=== PATIENT | male | born 1960 | race Caucasian/White ===

== ENCOUNTER 2025-01-14 05:58 | Day surgery (SDC) | payer MEDICARE ==
[2025-01-13 09:47] LABS: BASOPHILS # (AUTO) 0.1 X10'3 (0-0.2); BASOPHILS % (AUTO) 1.1 % (0-1); EOSINOPHILS # (AUTO) 0.6 X10'3 (0-0.9); EOSINOPHILS % (AUTO) 9.4 % (0-6); HEMATOCRIT 49.1 % (42.0-52.0); HEMOGLOBIN 16.2 g/dl (14.0-17.9); LYMPHOCYTES # (AUTO) 1.2 X10'3 (1.1-4.8); LYMPHOCYTES % (AUTO) 17.8 % (21-51); MEAN CORPUSCULAR VOLUME 87.8 FL (78-98); MEAN PLATELET VOLUME 9.5 FL (7.4-10.4); MONOCYTES # (AUTO) 0.6 X10'3 (0-0.9); MONOCYTES % (AUTO) 9.5 % (2-12); NEUTROPHILS # (AUTO) 4.1 X10'3 (1.8-7.7); NEUTROPHILS % (AUTO) 62.2 % (42-75); PLATELET COUNT 158 X10'3 (140-440); RED CELL DISTRIBUTION WIDTH 14.8 % (11.5-14.5); WHITE BLOOD COUNT 6.5 X10'3 (4.5-11.0)
[2025-01-13 09:58] LABS: ALBUMIN 3.8 G/DL (3.4-5.0); ANION GAP 6 (8-16); BLOOD UREA NITROGEN 12 MG/DL (7-18); BUN/CREATININE RATIO 12.2 (10.0-20.0); CALCIUM 8.6 MG/DL (8.5-10.1); CHLORIDE 104 MMOL/L (99-107); CREATININE 0.98 MG/DL (0.60-1.10); GLUCOSE 140 MG/DL (70-104); POTASSIUM 4.6 MMOL/L (3.5-5.1); SODIUM 139 MMOL/L (135-145); TOTAL CARBON DIOXIDE 29.5 MMOL/L (24-32); eGFR 77 ML/MIN
[2025-01-13 10:11] LABS: APTT 27 SECONDS (22-32); PROTHROMBIN TIME 10.3 SECONDS (9.0-12.0)
[~2025-01-14] VITALS: Ht 167.6 cm; Wt 83.0 kg
[2025-01-14] VITALS (13 sets, daily range): BP systolic 129–159; BP diastolic 68–88; PULSE 64–82; RESP 12–16; TEMP 98.2; O2SAT 95–99
[~2025-01-14 05:58] MED LIST: BUPR300T53 PO; CARV25TA2 PO; GABA-1405 PO; LISI20TA28 PO; OMEP20CA15 PO; TEST200V33 IM
[2025-01-14] MEDS ORDERED: HYDR-3973 PO (06:46)
[2025-01-14] MEDS ORDERED: OMEP20CA16 PO (06:46)
[2025-01-14] MEDS ORDERED: METF750T46 PO (06:46)
[2025-01-14] MEDS ORDERED: ROSU20TA98 PO (06:46)
[2025-01-14] MEDS ORDERED: APIX5TAB3 PO (06:46)
[2025-01-14] MEDS ORDERED: TERA2CAP4 PO (06:48)
[2025-01-14] MEDS ORDERED: IBUP-1985 PO (06:53)
[2025-01-14] MEDS ORDERED: ASPI-612 PO (06:53)
[2025-01-14] MEDS ORDERED: VITAMIN D (06:53)
[2025-01-14] MEDS ORDERED: VARD20TA39 PO (06:53)
[2025-01-14] MEDS ORDERED: AMLO-507 PO ×2 (06:56→11:47)
[2025-01-14] MEDS: LORazepam 0.5 MG tablet PO PRN (07:07)
[2025-01-14] MEDS: diphenhydrAMINE 25mg capsule PO PRN (07:07)
[2025-01-14] MEDS: normal saline 1,000 ML IV SCH (07:08)
[2025-01-14] MEDS ORDERED: fentaNYL/PF 50MCG/1 ML 2ML syringe ONE (07:46)
[2025-01-14] MEDS ORDERED: LIDOcaine 1% (10mg/ml) 2ml vial ONE (07:46)
[2025-01-14] MEDS ORDERED: midazolam 1 mg/ML 2ml injection ONE (07:46)
[2025-01-14] MEDS ORDERED: verapamil 2.5 mg/ml inj IV ONE (07:46)
[2025-01-14] MEDS ORDERED: iohexol 350 MG/ML 50ML vial IV ONE ×2 (07:46→10:12)
[2025-01-14] MEDS ORDERED: heparin 1,000unit/ml 10ml vial 10 ML ONE (07:47)
[2025-01-14] MEDS ORDERED: iohexol 350MG/ML 100ml bottle IV ONE ×3 (07:47→09:40)
[2025-01-14] MEDS ORDERED: nitroGLYCERIN 500mcg/5mL D5W 5 ML IV ONE ×3 (07:48→10:11)
[2025-01-14] MEDS ORDERED: heparin 1,000 UNITS/NS 500ml 500 ML ONE (09:27)
[2025-01-14] MEDS ORDERED: heparin 25,000 UNIT/250ml bag 250 ML IV ONE (09:34)
[2025-01-14] MEDS ORDERED: clopidogrel 300mg tablet ONE (10:16)
[2025-01-14 11:38] LABS: ISTAT HGB MIX 15.6 g/dl (14.0-17.9); ISTAT Hct MIX 46 %PCV (42-52); ISTAT O2 SATURATION MIX VENOUS 61 % (60-80); ISTAT SOURCE BLNK
[2025-01-14] MEDS ORDERED: normal saline 1000ml 1,000 ML IV SCH (11:45)
[2025-01-14] MEDS ORDERED: PANT-47 PO (11:47)
[2025-01-14] MEDS ORDERED: CLOP75TA33 PO (11:47)
[2025-01-14] MEDS ORDERED: ASPI-1071 PO (11:47)
[2025-01-14] MEDS ORDERED: ROSU40TA PO (11:47)
[2025-01-14 14:04] LABS: ISTAT HGB MIX 15.6 g/dl (14.0-17.9); ISTAT Hct MIX 46 %PCV (42-52); ISTAT O2 SATURATION MIX VENOUS 87 % (60-80); ISTAT SOURCE BLNK
[2025-01-15] MEDS ORDERED: aspirin 81mg, enteric-coated 1 TAB TABLET.DR PO SCH (08:00)
[2025-01-15] MEDS ORDERED: clopidogrel 75mg tablet PO SCH (08:00)
== END 2025-01-14 17:45 | disposition home or self-care (01) ==
LOC: SSTAY O 05:58
PROVIDERS: ATTEND Internal Medicine Cardiovascular Disease
DX: R94.39 Abnormal result of other cardiovascular function study (principal); I25.10 Atherosclerotic heart disease of native coronary artery without angina pectoris; R07.89 Other chest pain; I42.0 Dilated cardiomyopathy; E78.5 Hyperlipidemia, unspecified; I25.82 Chronic total occlusion of coronary artery; I25.2 Old myocardial infarction; I10 Essential (primary) hypertension; Z82.49 Family history of ischemic heart disease and other diseases of the circulatory system; Z79.899 Other long term (current) drug therapy; Z98.890 Other specified postprocedural states; E11.42 Type 2 diabetes mellitus with diabetic polyneuropathy
CPT/HCPCS: 36415; 80048; 82803; 82948; 85014; 85025; 85347; 85610; 85730; 92920; 93005; 93460; 93571; 93572; 99152; 99153; A6258; A6402; C1725; C1751; C1769; C1874; C1894; C9600; J1644; J2003; J2250; J3010; J3490; J7030; Q0163; Q9967; Z7610; 76937; C9607

== ENCOUNTER 2025-04-01 00:33 | Emergency (ER) | payer MEDICARE ==
[~2025-04-01] VITALS: Ht 167.6 cm; Wt 81.8 kg
[~2025-04-01 00:33] MED LIST changes: +APIX5TAB3 PO; +ASPI-1071 PO; +CARV12.545 PO; -CARV25TA2 PO; +CLOP75TA33 PO; +EMPA10TA PO; +HYDR-3973 PO; -LISI20TA28 PO; +LISI5TAB22 PO; -OMEP20CA15 PO; +PANT-47 PO; +ROSU40TA PO; +SPIR25TA PO; +TERA2CAP4 PO; -TEST200V33 IM; +VITAMIN D
--- NOTE | 2025-04-01 00:41 | ELECTROCARDIOGRAPH REPORT ---
[facility] Test Date: 2025-04-01 Test Time: 00:36:23 Pat Name: JOSH HYMAN Department: [facility] Patient ID: [id number] Room: Gender: M Lawn Mower Operator: : 1960 Requested By: SERGO OSEI Order Number: [id number] Reading MD: Measurements Intervals [place] Rate: 100 P: 0 ID: 0 QRS: 80 QRSD: 100 T: 82 QT: 355 QTc: 458 Interpretive Statements Junctional tachycardia Anterior infarct, old Minimal ST depression, inferior leads Please click the below link to view image of tracing.
[2025-04-01 00:46] LABS: BASOPHILS # (AUTO) 0.1 X10'3 (0-0.2); BASOPHILS % (AUTO) 1.2 % (0-1); EOSINOPHILS # (AUTO) 1.1 X10'3 (0-0.9); EOSINOPHILS % (AUTO) 13.2 % (0-6); HEMATOCRIT 43.6 % (42.0-52.0); HEMOGLOBIN 14.8 g/dl (14.0-17.9); LYMPHOCYTES # (AUTO) 1.9 X10'3 (1.1-4.8); LYMPHOCYTES % (AUTO) 22.4 % (21-51); MEAN CORPUSCULAR HEMOGLOBIN 29.4 PG (27.0-31.0); MEAN CORPUSCULAR HGB CONC 33.9 g/dL (33.0-36.5); MEAN CORPUSCULAR VOLUME 86.7 FL (78-98); MEAN PLATELET VOLUME 9.5 FL (7.4-10.4); MONOCYTES # (AUTO) 0.8 X10'3 (0-0.9); MONOCYTES % (AUTO) 10.1 % (2-12); NEUTROPHILS # (AUTO) 4.4 X10'3 (1.8-7.7); NEUTROPHILS % (AUTO) 53.1 % (42-75); PLATELET COUNT 151 X10'3 (140-440); RED BLOOD COUNT 5.03 X10'6 (4.70-6.10); WHITE BLOOD COUNT 8.4 X10'3 (4.5-11.0)
[2025-04-01 01:05] LABS: ALBUMIN 3.3 G/DL (3.4-5.0); ANION GAP 7 (8-16); BLOOD UREA NITROGEN 12 MG/DL (7-18); BUN/CREATININE RATIO 8.7 (10.0-20.0); CALCIUM 8.6 MG/DL (8.5-10.1); CHLORIDE 108 MMOL/L (99-107); CREATININE 1.38 MG/DL (0.60-1.10); GLUCOSE 182 MG/DL (70-104); POTASSIUM 4.1 MMOL/L (3.5-5.1); SODIUM 144 MMOL/L (135-145); TOTAL CARBON DIOXIDE 28.7 MMOL/L (24-32); eCRCL 48 ML/MIN; eGFR 52 ML/MIN
--- NOTE | 2025-04-01 01:07 | RADIOLOGY REPORT ---
CHEST RADIOGRAPH Indication: CP Technique: Single frontal view of the chest was obtained COMPARISON: DI CHEST,SINGLE VIEW on DOS: 01/24/25 FINDINGS: Lines and Tubes: None Lungs: Clear Pleura: No effusion. No pneumothorax. Cardiomediastinal contours: Unremarkable Bones: Unremarkable IMPRESSION: 1. No acute disease.
[2025-04-01 01:25] LABS: PRO BRAIN NATRIURETIC PEPTIDE 1192 PG/ML (0-125)
--- NOTE | 2025-04-01 01:53 | Physician Documentation ---
History of Present Illness ~ Chief Complaint: Palpitations Stated Complaint: RAPID HR Time Seen by MD: 01:49 Primary Medical Doctor: Mitch Mode of Arrival: POV HPI Patient presented to the emergency room for palpitations that began a proximally 10:00 a.m. this morning. He has been having these symptoms on and off and his manufacturing finance manager had him wear a Holter monitor which she just returned to that has yet to hear the results. He denies chest pain. Patient has extensive heart h istory over the past nine months in his being referred to [facility] for possible additional stent placement. He reports compliance with his anticoagulation. He also endorses some diaphoresis and low blood pressures which has been erratic recently. Currently he feels much better. Medication Reconciliation Allergies: Coded Allergies: No Known Allergies (Unverified , 01/09/17) Scheduled Apixaban (Eliquis), 1 TAB PO BID, (Reported) Aspirin (Ecotrin*), 2 TAB PO DAILY Bupropion HCl (Wellbutrin Xl), 1 TAB PO DAILY, (Reported) Carvedilol (Carvedilol), 12.5 MG PO BID Clopidogrel Bisulfate (Clopidogrel), 1 TAB PO DAILY Empagliflozin (Jardiance), 10 MG PO DAILY Gabapentin (Gabapentin), 1 TAB PO BID, (Reported) Lisinopril (Lisinopril), 5 MG PO DAILY Pantoprazole Sodium (PROTONIX tablet), 1 TAB PO DAILY Rosuvastatin Calcium* (Crestor*), 1 TAB PO HS Spironolactone (Aldactone), 12.5 MG PO DAILY@0830 Terazosin HCl (Terazosin HCl), 1 CAP PO HS, (Reported) Scheduled PRN Hydrocodone Bit/Acetaminophen (Hydrocodone-Apap 10-325 Tablet), 1 TAB PO QID PRN for pain, (Reported) Miscellaneous Medications [Vitamin D], (Reported) Past Medical History Past Medical History: BPH, Chronic Back Pain Past Surgical History: orthopedic surgeries Patient History: Patient reports no known family medical history. Other Past Family History: NONCONTRIBUTORY Drug Use: none Lives In: Home Review of Systems ROS All review of systems negative except as per HPI Physical Exam Vital Signs: Temperature: 97.8, Source: Oral, Heart Rate: 98, Respiratory Rate: 10, BP: 112/73, Pulse Oximetry: 94, Weight: 81.820 Oxygen Flow Rate: 2.0 Physical Exam General: Patient is awake, alert, oriented x4 in no acute distress Head: Normocephalic and atraumatic. Eyes: Conjunctival normal. EOMI. PERRL. ENT: Mucous membranes moist. Neck: Supple, trachea is midline. Chest: Clear to auscultation bilaterally without rales, rhonchi, or wheezes. There is no accessory muscle use or retractions. Cardiac: RRR without murmurs, gallops, or rubs. Abd: Soft, nondistended, nontender, with normoactive bowel sounds. No guarding, rebound, or rigidity. Progress Progress Note Turned nasal cannula off and patient is saturating 99% on room air Results/Orders Results/Orders Orders - RAMOS PERAZA MD Chest,Single View (04/01/25 00:46) Monitor (04/01/25 00:36) Saline Lock (04/01/25 00:36) Oxygen (04/01/25 00:36) Hs Troponin I W Calculations (04/01/25 03:36) Completed Orders - RAMOS PERAZA MD Chest,Single View (04/01/25 00:46) Cbc/Diff (04/01/25 00:36) BMP (04/01/25 00:36) PBNP (04/01/25 00:36) Electrocardiogram (04/01/25 00:36) Hs Troponin I W Calculations (04/01/25 00:36) Hs Troponin I W Calculations (04/01/25 02:36) Vital Signs 04/01/25 04/01/25 04/01/25 04/01/25 00:37 00:41 00:45 01:15 Temp 97.8 Pulse 100 98 Resp 20 19 10 B/P (MAP) 126/73 112/73 (86) Pulse Ox 80 97 94 O2 Delivery Nasal Cannula* O2 Flow Rate 0 2.0 2 FiO2 28 04/01/25 04/01/25 04/01/25 02:07 02:50 03:18 Pulse 89 89 88 Resp 9 10 13 B/P (MAP) 101/70 (80) 107/75 (86) 100/66 (77) Pulse Ox 97 100 99 O2 Flow Rate 2.0 2.0 Laboratory Tests Test 04/01/25 00:38 04/01/25 02:31 White Blood Count 8.4 Red Blood Count 5.03 Hemoglobin 14.8 Hematocrit 43.6 Mean Corpuscular Volume 86.7 Mean Corpuscular Hemoglobin 29.4 Mean Corpuscular Hemoglobin Concent 33.9 Red Cell Distribution Width 15.0 H Platelet Count 151 Mean Platelet Volume 9.5 Neutrophils (%) (Auto) 53.1 Lymphocytes (%) (Auto) 22.4 Monocytes (%) (Auto) 10.1 Eosinophils (%) (Auto) 13.2 H Basophils (%) (Auto) 1.2 H Neutrophils # (Auto) 4.4 Lymphocytes # (Auto) 1.9 Monocytes # (Auto) 0.8 Eosinophils # (Auto) 1.1 H Basophils # (Auto) 0.1 CBC Comment Sodium Level 144 Potassium Level 4.1 Chloride Level 108 H Carbon Dioxide Level 28.7 Anion Gap 7 L Blood Urea Nitrogen 12 Creatinine 1.38 H Estimated GFR/1.73 m2 52 BUN/Creatinine Ratio 8.7 L Glucose Level 182 H Calcium Level 8.6 Troponin I High Sensitivity 109 *H 103 *H Pro-B-Type Natriuretic Peptide 1192 H Albumin 3.3 L Chemistry Comments Troponin I High Sens Percent Delta 5 Troponin I Hi Sens Absolute Change -6 EKG/XRAY/CT/US/VASC/MRI EKG : Additional Comment EKG interpreted by myself shows time of 0037, rate 100, junctional rhythm, nor mal axis, ST elevations in leads V2 through V4 unchanged compared to previous with no reciprocal changes. Chest X-Ray : Additional Comments Exam: CHEST,SINGLE VIEW CHEST RADIOGRAPH Indication: CP Technique: Single frontal view of the chest was obtained COMPARISON: DI CHEST,SINGLE VIEW on DOS: 01/24/25 FINDINGS: Lines and Tubes: None Lungs: Clear Pleura: No effusion. No pneumothorax. Cardiomediastinal contours: Unremarkable Bones: Unremarkable IMPRESSION: 1. No acute disease. Medical Decision Making Findings Patient presents to the emergency room with palpitations and diaphoresis as per HPI. Differentials include but are not limited to cardiac arrhythmia, vasovagal, dehydration, electrolyte disturbances therefore emergent labs and imaging indicated. Labs reassuring for stable troponins and upon review of previous troponins this seems to be below his baseline. He denies any actual chest pain. His blood pressures remain volatile in the emergency room benefit stabilized. I suspect that he is suffering possible side effect from all of his medications he has been placed upon leading to hypotension. He does have a blood pressure monitor at home and I have instructed him to begin a blood pressure log and to also take his pulse when he symptomatic. He did turn in a Holter monitor and patient states that he was symptomatic when they did an EKG here in the emergency room today but no abnormality could be appreciated from his baseline on his EKG. Offered admission however after discussing the risks benefits and alternatives in the fact that he is very high risk he would prefer to follow up on outpatient basis and demonstrates capacity. ER precautions discussed as well as the absolute need to call his doctor today for possible medication adjustments regarding his blood pressure. Departure Disposition: HOME / SELF CARE / HOMELESS Impression: Primary Impression: Palpitations Additional Impression: Hypotension Condition: Fair Discharge Instructions: Hypotension, [id number], Palpitations, [id number] Additional Instructions: Call your doctor today to arrange for close follow up. Begin blood pressure log. Return for any worsening of symptoms. Referrals: NO PRIMARY CARE PROVIDER (PCP) Education Educated: Patient, Family Educated regarding: diagnosis, need for follow up Signature Scribe Signature: No scribe Attestation: The note accurately reflects work and decisions made by me.Ramos Peraza MD 04/01/25 03:50 RAMOS PERAZA MD Apr 01, 2025 01:53
[2025-04-01 04:11] VITALS: BP 103/70; PULSE 86; RESP 19; TEMP 97.8; O2SAT 100
== END 2025-04-01 04:24 | disposition home or self-care (01) ==
LOC: ER 00:33
DX: R00.2 Palpitations (principal); I95.9 Hypotension, unspecified; R06.02 Shortness of breath; I25.2 Old myocardial infarction; Z79.899 Other long term (current) drug therapy; Z79.82 Long term (current) use of aspirin
CPT/HCPCS: 36415; 71045; 80048; 82948; 83880; 84484; 85025; 93005; 99285

== ENCOUNTER 2025-04-22 07:36 | Day surgery (SDC) | payer MEDICARE ==
[2025-04-21 08:58] LABS: CHOL/HDL RATIO 2.2 (0.00-4.99); CREATININE 1.12 MG/DL (0.60-1.10); LDL CHOLESTEROL 57 MG/DL (50-100); TOTAL CARBON DIOXIDE 29.0 MMOL/L (24-32); eGFR 66 ML/MIN
[~2025-04-22] VITALS: Ht 167.6 cm; Wt 83.2 kg
[2025-04-22] VITALS (10 sets, daily range): BP systolic 121–148; BP diastolic 68–83; PULSE 60–73; RESP 10–16; TEMP 97.9; O2SAT 95–98
[~2025-04-22 07:36] MED LIST changes: -VITAMIN D; +VITAMIN D PO
[2025-04-22] MEDS ORDERED: normal saline 1000ml 1,000 ML IV PRN (08:00)
[2025-04-22] MEDS ORDERED: ceFAZolin 2,000MG in D5W 50mL IV ONE (08:00)
--- NOTE | 2025-04-22 08:06 | ELECTROCARDIOGRAPH REPORT ---
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 SHIRA Law Measurements Intervals [place] Rate: 63 P: 78 NV: 239 QRS: 106 QRSD: 100 T: 81 QT: 398 QTc: 408 Interpretive Statements Sinus rhythm Prolonged NV interval Right axis deviation Probable anteroseptal infarct, old Electronically Signed On 04-22-2025 17:26:[address] SHIRA Law Please click the below link to view image of tracing.
[2025-04-22] MEDS ORDERED: ROSU40TA89 PO (08:42)
[2025-04-22] MEDS ORDERED: SPIR25TA5 PO (08:42)
[2025-04-22] MEDS ORDERED: PANT40TA54 PO (08:42)
[2025-04-22] MEDS ORDERED: LIDOcaine 1% W/epiNEPHrine 1:100,000 20ml vial ONE (08:42)
[2025-04-22] MEDS ORDERED: CLOP75TA34 PO (08:42)
[2025-04-22] MEDS ORDERED: METF-436 PO (08:42)
[2025-04-22] MEDS ORDERED: fentaNYL/PF 50MCG/1 ML 2ML syringe ONE (08:42)
[2025-04-22] MEDS ORDERED: CARV-50 PO (08:42)
[2025-04-22] MEDS ORDERED: EMPA10TA PO (08:42)
[2025-04-22] MEDS ORDERED: midazolam 1 mg/ML 2ml injection ONE ×2 (08:42→11:09)
[2025-04-22] MEDS ORDERED: TEST200V33 IM (08:44)
[2025-04-22] MEDS ORDERED: ASPI-1397 PO (08:44)
[2025-04-22 08:45] LABS: MEAN PLATELET VOLUME 9.4 FL (7.4-10.4); RED CELL DISTRIBUTION WIDTH 15.1 % (11.5-14.5)
[2025-04-22] MEDS ORDERED: MULT-1085 PO (08:46)
[2025-04-22] MEDS ORDERED: LISI5TAB22 PO (08:46)
[2025-04-22 08:56] LABS: INR 1.1 INR
[2025-04-22] MEDS ORDERED: HYDROcodone/acetaminophen 10/325mg tab PO PRN (12:50)
[2025-04-22] MEDS ORDERED: HYDROcodone/acetaminophen 5mg/325mg tablet PO PRN (12:50)
[2025-04-22] MEDS ORDERED: CEPH-585 PO (14:35)
--- NOTE | 2025-04-22 14:47 | RADIOLOGY REPORT ---
EXAM: DI CHEST,TWO VIEWS CLINICAL HISTORY: Pain; S/P PACEMAKER COMPARISON: None TECHNIQUE: Frontal and lateral view of the chest was obtained FINDINGS: Lines and Tubes: Cardiac pacemaker projects over left chest wall. Lungs: No focal consolidation. Pleura: No effusion. No pneumothorax. Cardiomediastinal contours: Unremarkable Bones: No acute osseous abnormality. IMPRESSION: No acute cardiopulmonary disease.
[2025-04-22] MEDS: vancomycin/NS 1 GM ADD-VANTAGE 250 ML IV ONE (14:57)
--- NOTE | 2025-04-23 01:07 | CARDIOLOGY REPORT ---
DATE OF SERVICE: 04/22/2025 DICTATING PHYSICIAN: SHIRA Brennan MD PERMANENT PACEMAKER IMPLANTATION GENDER: Male. AGE: 64 years. HEIGHT: 167 cm. PRIMARY PHYSICIAN: Dr. Stephanie Brannon in [facility]. CREDIT ASSISTANT: SHIRA Brennan MD INDICATION: The patient is a 64-year-old male with a history of CAD, status post stenting; cardiomyopathy; hypertension; hyperlipidemia; and bradycardia and AV block. The patient had an event monitor on 02/13/2025, which shows second-degree AV block type 2. Heart rate lowest was 50. In view of the patient has been having intermittent episodes of tiredness, fatigue, and dizziness, after discussing risks, benefits, alternative options, the patient prefers to proceed with permanent pacemaker implantation. Risks, benefits, and alternative options discussed, informed consent obtained. PREPROCEDURE DIAGNOSIS: Sick sinus syndrome with tachybrady episode. POSTPROCEDURE DIAGNOSIS: Sick sinus syndrome with tachybrady episode. PROCEDURES DONE: * Fluoroscopy. * AV sequential pacemaker implantation. * Conscious sedation time of 75 minutes. SURGEON: SHIRA Brennan MD, FACC. SENIOR PROJECT ACCOUNTANT SURGEON: None. ANESTHESIA: Local anesthesia with conscious sedation. COMPLICATIONS: None. BLOOD LOSS: Less than 5 mL. DESCRIPTION OF PROCEDURE: Left infraclavicular area was prepped and draped in the usual fashion. Two separate accesses were obtained in the subclavian vein. Through one of them, RV lead advanced to the RV apex, screwed into the RV apex. Appropriate pacing and sensing thresholds obtained. Through the second 7-Hebrew sheath, right atrial lead was advanced to the right atrial appendage. J-wire was advanced, screwed into the right atrial appendage, and then, the sheath was removed by peel-away technique and lead anchored to subcutaneous tissue with Ethibond. Then, the wound was flushed with antibiotic solution. Leads connected to appropriate sockets of the pulse generator. Set screws were tightened. Tug test performed. Then, the pacemaker pocket was irrigated. Pacemaker suspended in the pacemaker pocket. Pocket closed with continuous 0 Vicryl followed by interrupted 0 Vicryl, third layer of interrupted 2-0 Vicryl applied. Skin approximated with shaye. Pressure dressing applied. The patient tolerated the procedure well with no complications. TECHNICAL INFORMATION: Device used was a Smallable DR MRI, model number W3DR01, serial number [id number], [employer], 04/22/2025, left pectoral location. RIGHT ATRIAL LEAD: Model #4076, 52 cm long, serial #[id number], [employer], 04/22/2025, right atrial appendage. P-wave amplitude of 2.4 millivolts, pacing threshold of 0.75 at 0.4 milliseconds. RV LEAD: Model #5076, 58 cm long, serial #[id number], [employer], 04/22/2025, R-wave of 8.4, pacing threshold of 0.5 at 0.4 milliseconds. IMPRESSION: A 64-year-old male with sick sinus syndrome with tachybrady episode, underwent successful AV sequential pacemaker implantation with no complications. SHIRA Brennan MD TID: [id number] RECEIPT: [id number] ANGY/MATHEUS cc: Dr. Stephanie LIU
== END 2025-04-22 17:00 | disposition home or self-care (01) ==
LOC: SSTAY O 07:36
PROVIDERS: ATTEND Internal Medicine Cardiovascular Disease
DX: I49.5 Sick sinus syndrome (principal); E78.5 Hyperlipidemia, unspecified; I42.0 Dilated cardiomyopathy; I44.1 Atrioventricular block, second degree; I10 Essential (primary) hypertension; G62.9 Polyneuropathy, unspecified; Z98.890 Other specified postprocedural states; Z82.49 Family history of ischemic heart disease and other diseases of the circulatory system; E11.9 Type 2 diabetes mellitus without complications
CPT/HCPCS: 33208; 36415; 71046; 80053; 80061; 82948; 85025; 85610; 93005; 99152; 99153; A4565; A6402; C1785; C1898; J0690; J1200; J2250; J3010; J3370; J3490; J7030; Z7610; A6449; J3373

== ENCOUNTER 2025-06-29 19:03 | Inpatient (IN) | payer MEDICARE ==
[~2025-06-29] VITALS: Ht 167.6 cm; Wt 83.6 kg
[~2025-06-29 19:03] MED LIST changes: -ASPI-1071 PO; +ASPI-1397 PO; +CARV-50 PO; -CARV12.545 PO; -CLOP75TA33 PO; +CLOP75TA34 PO; +METF-436 PO; +MULT-1085 PO; -PANT-47 PO; +PANT40TA54 PO; -ROSU40TA PO; +ROSU40TA89 PO; -SPIR25TA PO; +SPIR25TA5 PO; +TEST200V33 IM
[2025-06-29 19:27] LABS: MEAN PLATELET VOLUME 9.1 FL (7.4-10.4); RED CELL DISTRIBUTION WIDTH 14.8 % (11.5-14.5)
--- NOTE | 2025-06-29 19:32 | Physician Documentation ---
History of Present Illness ~ Chief Complaint: Abdominal Pain Stated Complaint: ABD PAIN/VOMITING Time Seen by MD: 19:23 Primary Medical Doctor: Mitch Mode of Arrival: POV [facility] Patient presents to the emergency room with chief complaint of abdominal pain onset of symptoms today. No prior instances. Bowel movements reported to be regular. No problems urinating. Positive nausea with the vomiting. He has had nothing for his symptoms. He denies any chest pain Medication Reconciliation Allergies: Coded Allergies: No Known Allergies (Unverified , 01/09/17) Scheduled Apixaban (Eliquis), 1 TAB PO BID, (Reported) Aspirin (Aspirin EC), 2 TAB PO DAILY, (Reported) Bupropion HCl (Wellbutrin Xl), 1 TAB PO DAILY, (Reported) Carvedilol* (Coreg*), 1 TAB PO Q12H, (Reported) Clopidogrel Bisulfate (Clopidogrel), 1 TAB PO DAILY, (Reported) Empagliflozin (Jardiance), 1 TAB PO DAILY, (Reported) Gabapentin (Gabapentin), 1 TAB PO BID, (Reported) Lisinopril (Lisinopril), 1 TAB PO DAILY, (Reported) Metformin Hcl (Metformin Hcl), 1 TAB PO DAILY, (Reported) Multivitamin (Multi Vitamin Daily), 1 TAB PO DAILY, (Reported) Pantoprazole Sodium (Pantoprazole Sodium), 1 TAB PO DAILY, (Reported) Rosuvastatin Calcium (Rosuvastatin Calcium), 1 TAB PO DAILY, (Reported) Spironolactone (Spironolactone), 0.5 TAB PO BID, (Reported) Terazosin HCl (Terazosin HCl), 1 CAP PO HS, (Reported) Testosterone Cypionate (TESTOSTERONE CYPIONATE 200mg/ml 10ml vial), 1 ML IM Q2W, (Reported) [Vitamin D], 1 TAB PO DAILY, (Reported) Scheduled PRN Hydrocodone Bit/Acetaminophen (Hydrocodone-Apap 10-325 Tablet), 1 TAB PO QID PRN for pain, (Reported) Past Medical History Past Medical History: BPH, Chronic Back Pain Past Surgical History: orthopedic surgeries Patient History: Patient reports no known family medical history. Other Past Family History: NONCONTRIBUTORY Drug Use: none Lives In: Home Review of Systems ROS All review of systems negative except as per HPI Physical Exam Vital Signs: Temperature: 97.6, Source: Oral, Heart Rate: 72, Respiratory Rate: 18, BP: 164/89, Pulse Oximetry: 100, Weight: 83.600 Oxygen Flow Rate: 0 Physical Exam General: Patient is awake, alert, oriented x4 in no acute distress Head: Normocephalic and atraumatic. Eyes: Conjunctival normal. EOMI. PERRL. ENT: Mucous membranes moist. Neck: Supple, trachea is midline. Chest: Clear to auscultation bilaterally without rales, rhonchi, or wheezes. T here is no accessory muscle use or retractions. Cardiac: RRR without murmurs, gallops, or rubs. Abd: Soft, nondistended, mild diffuse tenderness to palpation without peritonitis. Noted 3 cm umbilical hernia without tenderness to palpation Progress Results/Orders Results/Orders Orders - RAMOS PERAZA MD Ct Abdomen Pelvis (06/29/25 19:53) Nasal Gastric Tube (06/29/25 21:11) Page Hospitalist (06/29/25 21:11) Fill Out Med Reconciliation (06/29/25 21:11) Completed Orders - RAMOS PERAZA MD Cbc/Diff (06/29/25 19:11) Lipase (06/29/25 19:11) CMP (06/29/25 19:11) Ct Abdomen Pelvis (06/29/25 19:53) Normal Saline 1000ml (0.9% Sodium Chlori (06/29/25 19:30) Morphine 4mg/Ml Inj. (Morphine Inj.) (06/29/25 19:30) Ondansetron Inj. (Zofran 4mg/2ml Vial) (06/29/25 19:30) Morphine 4mg/Ml Inj. (Morphine Inj.) (06/29/25 21:15) Hgb A1c (06/29/25 19:19) MG (06/29/25 19:19) PBNP (06/29/25 19:19) Ua W/Microscopic, Cult If Ind (06/29/25 22:18) Vital Signs 06/29/25 06/29/25 06/29/25 06/29/25 19:12 19:27 19:39 20:23 Temp 97.6 Pulse 72 68 Resp 16 18 22 16 B/P (MAP) 164/89 180/90 (120) Pulse Ox 100 94 O2 Flow Rate 0 06/29/25 20:59 Pulse 64 Resp 16 B/P (MAP) 145/68 (93) Pulse Ox 95 Laboratory Tests Test 06/29/25 19:19 White Blood Count 10.8 Red Blood Count 6.00 Hemoglobin 17.8 Hematocrit 53.1 H Mean Corpuscular Volume 88.4 Mean Corpuscular Hemoglobin 29.7 Mean Corpuscular Hemoglobin Concent 33.5 Red Cell Distribution Width 14.8 H Platelet Count 154 Mean Platelet Volume 9.1 Neutrophils (%) (Auto) 78.8 H Lymphocytes (%) (Auto) 9.3 L Monocytes (%) (Auto) 7.2 Eosinophils (%) (Auto) 4.0 Basophils (%) (Auto) 0.7 Neutrophils # (Auto) 8.5 H Lymphocytes # (Auto) 1.0 L Monocytes # (Auto) 0.8 Eosinophils # (Auto) 0.4 Basophils # (Auto) 0.1 CBC Comment Prothrombin Time 10.9 INR International Normalized Ratio 1.1 Activated Partial Thromboplast Time 28 Coagulation Comments Sodium Level 139 Potassium Level 4.5 Chloride Level 100 Carbon Dioxide Level 33.3 H Anion Gap 6 L Blood Urea Nitrogen 16 Creatinine 1.19 H Estimated GFR/1.73 m2 61 BUN/Creatinine Ratio 13.4 Glucose Level 148 H Hemoglobin A1c 6.2 Calcium Level 9.8 Magnesium Level 1.9 Total Bilirubin 0.6 Aspartate Amino Transf (AST/SGOT) 22 Alanine Aminotransferase (ALT/SGPT) 49 Alkaline Phosphatase 123 H Pro-B-Type Natriuretic Peptide 566 H Total Protein 7.5 Albumin 3.9 Globulin 3.6 Albumin/Globulin Ratio 1.1 Lipase 34 Chemistry Comments Medical Decision Making Findings Patient presents to the emergency room with abdominal pain as per HPI. Diff erentials include but are not limited to gastritis cholecystitis diverticulitis pancreatitis small-bowel obstruction kidney stone therefore emergent labs and imaging indicated. CT scan shows ileus versus possible small bowel obstruction. Patient continues to have significant pain therefore NG-tube placed and we will admit patient for further evaluation treatment and possible intervention Departure Admitted to Inpatient Unit: yes, to hospitalist Impression: Primary Impression: Small bowel obstruction Condition: Guarded Referrals: NO PRIMARY CARE PROVIDER (PCP) Signature Scribe Signature: No scribe Attestation: The note accurately reflects work and decisions made by me.Ramos Peraza MD 07/01/25 19:31 RAMOS PERAZA MD Jun 29, 2025 19:32
[2025-06-29] MEDS: normal saline 1000ml 1,000 ML IV ONE (19:37)
[2025-06-29] MEDS: ondansetron/PF 4mg/2ml inj IV ONE (19:38)
[2025-06-29] MEDS: morphine 4 MG/ML inj SYRINge IV ONE ×2 (19:39→21:29)
[2025-06-29 19:45] LABS: CREATININE 1.19 MG/DL (0.60-1.10); TOTAL CARBON DIOXIDE 33.3 MMOL/L (24-32); eCRCL 55 ML/MIN; eGFR 61 ML/MIN
--- NOTE | 2025-06-29 20:18 | RADIOLOGY REPORT ---
Exam: CT CT ABDOMEN PELVIS History: abd pain COMPARISON: None Technique: Multidetector spiral CT of the abdomen and pelvis was performed from lung bases to pubic symphysis. Intravenous contrast was administered during this examination. Portal venous imaging was obtained. Axial, coronal and sagittal multiplanar reformats were performed by the technologist on a separate workstation. Radiation Dose : 1. Abdomen/Pelvis: CTDIvol 26 mGy, DLP 1335 mGy*cm. Findings: Lower Chest: No acute findings. 10 x 9 mm pleural-based nodule in the left lower lobe. Normal heart size with partially imaged cardiac leads. Liver: Normal. Gallbladder and Biliary Tree: Small amount of layering stones/sludge at the gallbladder neck. No evidence of wall thickening or ductal dilation. Pancreas: Diffuse atrophy. Spleen: Small calcifications. Adrenal Glands: 3.2 cm right adrenal nodule containing macroscopic fat , consistent with benignity. Kidneys: No acute findings. Bilateral renal cortical cysts without suspicious features. Bladder: Unremarkable. Pelvic Organs: Unremarkable as visualized. Bowel: Distended stomach. 2 duodenal diverticula. The jejunum is dilated with fecalized appearance of internal contents. Long segment bowel loop area of transition extending across midline (axial images 58- 65) without a focal transition point. The mid to distal small bowel is decompressed. The appendix is normal. The large bowel is normal in caliber without wall thickening. Colonic diverticulosis without diverticulitis. Vasculature: Unremarkable. Lymphadenopathy: No evident adenopathy. Peritoneum: No ascites, free air, or fluid collection. Abdominal Wall: Fat containing moderate-sized umbilical hernia with internal stranding. Postsurgical change of the right groin. Small fat containing left inguinal hernia. Musculoskeletal: No acute abnormality. Posterior fixation of T11-L2 without evidence of hardware complication. Chronic appearing wedge compression deformity of L1. Degenerative change of the spine and pelvis. IMPRESSION: 1. Findings compatible with proximal small bowel ileus versus low-grade bowel obstruction, without transition point. The stomach is significantly distended. Recommend enteric decompression and follow-up. 2. Stranding within a moderate sized umbilical hernia without a contain bowel loop, correlate with physical exam for fat incarceration. 3. Uncomplicated colonic and duodenal diverticula. Additional chronic and incidental findings above Radiation optimization: All CT scans at this facility use at least one of these dose optimization techniques: automated exposure control mA and/or kV adjustment per patient size (includes targeted exams where dose is matched to clinical indication) or iterative reconstruction.
[2025-06-29] MEDS ORDERED: potassium Cl 40MEQ/1/2NS 520ml 520 ML IV PRN (22:10)
[2025-06-29] MEDS ORDERED: magnesium hydroxide 30ml (MOM) UD suspension PO PRN (22:10)
[2025-06-29] MEDS ORDERED: potassium Cl 20 mEq SR tablet PO PRN ×2 (22:10)
[2025-06-29] MEDS ORDERED: mag hydrox/Alum hydrox/simeth 30ml oral suspension PO PRN (22:10)
[2025-06-29] MEDS ORDERED: magnesium Cl slow-release 64mg tablet PO PRN (22:10)
[2025-06-29] MEDS ORDERED: ondansetron/PF 4mg/2ml inj IV PRN (22:10)
[2025-06-29] MEDS ORDERED: magnesium sulf-water 4G/100mL 100 ML IV PRN (22:10)
[2025-06-29] MEDS ORDERED: magnesium sulf-water 2g/50mL 50 ML IV PRN (22:10)
[2025-06-29 22:34] LABS: APTT 28 SECONDS (22-32); INR 1.1 INR
--- NOTE | 2025-06-29 22:35 | HISTORY AND PHYSICAL-Residence ---
History & Physical Providers to CC Resident Creating Document: CONSTANCE MCGHEE, RES ~ History of Present Illness Primary Medical Doctor: Mitch Reason for Admit\Complaint: Abdominal pain History of Present Illness This is a 65-year-old male with a history of CAD s/p stenting of LAD and diagonal in 02/06, apical clot, on Eliquis, hypertension, diabetes mellitus, hyperlipidemia, history of umbilical hernia surgery about 20 years ago, came to the ER with a chief complaint of abdominal pain which started around 1:00 p.m. today. The pain is located in the periumbilical region, described it as sharp and continuous, graded 9/10, nonradiating. The pain is associated with nausea and vomiting which started about 2-3 hours after the abdominal pain, had about five episodes containing food material, denies any hematemesis. Denies any fever, diarrhea or constipation. Last bowel movement was around 2:00 p.m. today. No similar complaints in the past. Denies any recent travel history, changes in the diet. No similar complaints in other family members. He never had a colonoscopy done. Had Cologuard test in the past, nothing out of ordinary was found. Course in the ER: Abdominal CT showed ileus vs SBO with significant dilation of stomach. NG tube was placed about 800 mL of greenish fluid was suctioned. The pain improved after the NG tube was placed currently reports a pain level of 4/[address] Brennan. Allergies: Coded Allergies: No Known Allergies (Unverified , 01/09/17) Home Medications Home Medications Active Reported Multi Vitamin Daily (Multivitamin) 1 Each Tablet 1 Tab PO DAILY Lisinopril 5 Mg Tablet 1 Tab PO DAILY TESTOSTERONE CYPIONATE 200mg/ml 10ml vial (Testosterone Cypionate) 200 Mg/Ml Vial 1 Ml IM Q2W Aspirin EC (Aspirin) 81 Mg Tablet.dr 2 Tab PO DAILY Spironolactone 25 Mg Tablet 0.5 Tab PO BID Rosuvastatin Calcium 40 Mg Tablet 1 Tab PO DAILY Pantoprazole Sodium 40 Mg Tablet.dr 1 Tab PO DAILY Clopidogrel (Clopidogrel Bisulfate) 75 Mg Tablet 1 Tab PO DAILY Metformin Hcl 500 Mg Tablet 1 Tab PO DAILY Jardiance (Empagliflozin) 10 Mg Tablet 1 Tab PO DAILY Coreg* (Carvedilol) 12.5 Mg Tablet 1 Tab PO Q12H [Vitamin D] 1 Tab PO DAILY Terazosin HCl 2 Mg Capsule 1 Cap PO HS Eliquis (Apixaban) 5 Mg Tablet 1 Tab PO BID Hydrocodone-Apap 10-325 Tablet (Acetaminophen/Hydrocodone Bitart) 10mg/325mg Tablet 1 Tab PO QID PRN Gabapentin 600 Mg Tablet 1 Tab PO BID Wellbutrin Xl (Bupropion HCl) 300 Mg Tab.er.24h 1 Tab PO DAILY Past Medical History Past Medical History CAD s/p stenting of LAD and diagonal in 02/06 on aspirin, Plavix Apical clot, on Eliquis 5 mg b.i.d. CHF with reduced ejection fraction, 45%, on lisinopril 5 mg, Jardiance 10 mg, carvedilol 12.5 mg b.i.d., Aldactone 12.5 mg Diabetes mellitus, on metformin 500 mg daily Peripheral neuropathy, on gabapentin 300 mg b.i.d. Hypertension Degenerative disc disease, [place] 07/17/2025 q.6 p.r.n. Hyperlipidemia on rosuvastatin 40 mg BPH Hiatal hernia, on pantoprazole 40 mg Past Surgical History Surgical History Comment Umbilical hernia surgery with mesh repair about 20 years ago Ankle surgery in 1992, ankle surgery in 1998, right total shoulder repair in 2006, right shoulder repair in 2022, right wrist repair in 2022. Family History Family History: CABG MOTHER, Age: 85 Past Social History Social History Comment Never smoked. No alcohol use. No substance abuse. The patient is . Lives with his who is an HIGHWAY RESEARCH ENGINEER at [employer]. 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 Drug Use: None Lives In: Home ROS Constitutional: Denies: no symptoms reported, see HPI, chills, diaphoresis, fever, malaise, weakness, other Eyes: Denies: no symptoms reported, see HPI, pain, discharge, blurred vision, double vision, itching, photophobia, redness, tearing, other ENT: Denies: no symptoms reported, see HPI, ear pain, ear bleeding, ear discharge, hearing loss, ear ringing, nose pain, nose bleeding, nose congestion, nose discharge, throat pain, throat swelling, voice change, mouth pain, mouth bleeding, mouth swelling, other Respiratory: Denies: no symptoms reported, see HPI, cough, orthopnea, shortness of breath, SOB with exertion, SOB at rest, stridor, wheezing, hemoptysis, pain with breathing, other Cardiovascular: Denies: no symptoms reported, see HPI, chest pain, left arm pain, diaphoresis, lightheadedness, syncope, edema, palpitations, irregular heart rate, other Gastrointestinal: Reports: abdominal pain, nausea, vomiting Genitourinary: Denies: no symptoms reported, see HPI, burning, discharge, dysuria, frequency, flank pain, hematuria, incontinence, pain, decreased urine output, urgency, other Neurological: Denies: no symptoms reported, see HPI, speech problem, headache, dizziness, fainting, tingling, left sided numbness, right sided numbness, left sided weakness, right sided weakness, problems walking, unable to move lower ext, unable to move upper ext, petit mal seizures, tonic-clonic seizures, cognitive dysfunction, other Musculoskeletal: Denies: no symptoms reported, see HPI, pain, swelling, back pain, gout, joint pain, joint swelling, muscle pain, muscle swelling, muscle stiffness, neck pain, other Exam Vitals: Vital Signs Date Time Temp Pulse Resp B/P (MAP) Pulse Ox O2 Delivery O2 Flow Rate FiO2 06/29/25 22:13 82 16 159/87 (111) 98 06/29/25 19:12 97.6 0 General: General: Awake and Alert, no acute distress. HEENT: Conjunctiva pink, Sclera clear, Mucus Membranes moist. Neck: Supple without masses and tenderness. Resp: Unlabored. Bilateral breath sounds equal. Heart: Regular rhythm, normal S1 and S2, no rub, murmur or gallop. Abdomen: Soft, mildly tender in the periumbilical region, no organomegaly, no guarding, no rigidity, Garrido sign negative, bowel sounds present. Small sized Umbilical hernia could be palpated which is not tender or red or warm. Extremities: Normal ROM, no swelling, nontender. No cyanosis,clubbing or edema. LINK TRAINER TEACHER: No gross motor or sensory abnormalities. Skin: Warm and Dry. Diagnostic Data Last Recorded Lab Results: 06/30/2544806/30/25448 Advance Care Planning Advanced Care plannin - 30 Minutes (I spent 17 minutes in discussing various resuscitative measures, the patient chose to be full code.) Additional Plan Assessment This is a 65-year-old male with a history of CAD s/p stenting of LAD and diagonal in 02/06, apical clot, on Eliquis, hypertension, diabetes mellitus, hyperlipidemia, history of umbilical hernia surgery about 20 years ago, came to the ER with a chief complaint of abdominal pain associated with nausea and vomiting. Abdominal CT showed findings suggestive of proximal small bowel ileus vs low-grade bowel obstruction without transition point. Significantly distended stomach. Moderate-sized umbilical hernia. NG tube placed Plan Acute abdomen Likely secondary to small bowel ileus vs low-grade SBO History of umbilical hernia surgery about 20 years ago Abdominal pain 9/10 on admission, improved to 4/10 Significant stomach distention, improved after NG tube NG tube drainage about 800 mL. Last bowel movement was today at 2:00 p.m., bowel sounds present, able to pass bowel gas Abdominal CT showed findings suggestive of proximal small bowel ileus vs low- grade bowel obstruction without transition point. Significantly distended stomach. Moderate-sized umbilical hernia. Pain management-morphine p.r.n. NPO Consult surgeon in the morning CAD s/p stenting in LAD and diagonal in 02/06 Left ventricular apical thrombus Denies any chest pain. Continued patient's home medication aspirin and Plavix Held patient's home medication Eliquis for any possible surgery tomorrow. Chronic CHF with reduced ejection fraction 45%, not in acute exacerbation ProBNP 566 Echo in 425 showed an ejection fraction of 45%, with distal anterior apical dyskinesia. Pulmonary capillary wedge pressure 18 mmHg Continued patient's home medication lisinopril 5 mg, Jardiance 10 mg, Aldactone 12.5 mg, carvedilol 12.5 mg b.i.d. History of diabetes mellitus Diabetic peripheral neuropathy A1c 6.2 Continued patient's home medication gabapentin Hypertension Current blood pressure is 145/68 Continued patient's home medication lisinopril and carvedilol. Hyperlipidemia Lipid panel ordered Continued patient's home medication rosuvastatin 40 mg History of hiatal hernia Started pantoprazole 40 mg IV daily Code status: Full code DVT prophylaxis: SCD, Eliquis held GI prophylaxis: Pantoprazole 40 mg Diet: NPO Line/tubes: Peripheral IV line, NG tube Status: Guarded Disposition: Consult surgery in the morning Constance Mcghee M.D PGY2 Date of Service: Jun 29, 2025 Billing Provider: MICHAELA RANDOLPH MD Addendum Attestation I agree with the residents assessment and plan as below: 65 year old male admitted with SBO. NG placed with 800cc output. Plan: NPO NG to LIS Surgery consult CCT 41 min using HIPPA compliant A/V technology CONSTANCE MCGHEE, RES Jun 29, 2025 22:35 MICHAELA RANDOLPH MD Jun 30, 2025 07:35
[2025-06-29 22:48] LABS: PRO BRAIN NATRIURETIC PEPTIDE 566 PG/ML (0-125)
[2025-06-29 22:48] LABS: LEUKOCYTE ESTERASE ,URINE NEGATIVE (Neg); NITRITES, URINE NEGATIVE (Neg); OCCULT BLOOD,URINE TRACE-INTACT (Neg); UA COLLECTION TYPE NON-SPECIFIED
[2025-06-29 22:50] LABS: MUCUS STRANDS FEW /LPF (Neg); SQUAMOUS EPITHELIAL CELL,UR FEW /LPF (FEW)
[2025-06-30 00:12] VITALS: BP 117/79; PULSE 78; RESP 16; TEMP 98; O2SAT 100
[2025-06-30 00:27] VITALS: RESP 16; O2SAT 100
[2025-06-30 05:29] LABS: MEAN PLATELET VOLUME 10.0 FL (7.4-10.4); RED CELL DISTRIBUTION WIDTH 14.7 % (11.5-14.5)
[2025-06-30 05:44] LABS: CHOL/HDL RATIO 4.3 (0.00-4.99); CREATININE 1.00 MG/DL (0.60-1.10); LDL CHOLESTEROL 98 MG/DL (50-100); TOTAL CARBON DIOXIDE 31.1 MMOL/L (24-32); eCRCL 66 ML/MIN; eGFR 75 ML/MIN
[2025-06-30 06:00] VITALS: BP 103/77; PULSE 70; RESP 16; TEMP 96.9; O2SAT 95
[2025-06-30] MEDS ORDERED: morphine 4 MG/ML inj SYRINge IV PRN (07:47)
[2025-06-30] MEDS: aspirin 81mg, enteric-coated 1 TAB TABLET.DR PO SCH (08:00)
[2025-06-30] MEDS: EMPAGLIFLOZIN 10 MG TABLET PO SCH (08:00)
[2025-06-30] MEDS: K and/or MAG REPLACEMENT MC SCH (08:00)
[2025-06-30] MEDS: BUPROPION HCL 150MG XL 24 HR 150 MG TAB PO SCH (08:00)
[2025-06-30] MEDS: multivitamins, therapeutics tablet PO SCH (08:00)
[2025-06-30] MEDS: docusate sod 100mg capsule PO SCH (08:00)
[2025-06-30] MEDS: morphine 4 MG/ML inj SYRINge IV PRN (09:31)
--- NOTE | 2025-06-30 13:05 | PROGRESS NOTE ---
Daily Progress Note Providers to CC ~ Antibiotic Timeout Antibiotic Ordered?: No Subjective No acute events overnight. Patient examined at bedside. No new complaints, not in acute distress. Patient denies chest pain, sob, palpitations, n/v/d. Reports improving abdominal pain. Continued on NGT, IVF, supportive care. Vss, labs unremarkable. Objective Vital Signs Date Time Temp Pulse Resp B/P (MAP) Pulse Ox O2 Delivery O2 Flow Rate FiO2 06/30/25 08:00 70 06/30/25 06:00 96.9 16 103/77 (86) 95 Room Air 06/29/25 19:12 0 Result Diagram: 06/30/259 06/30/25448 Physical Exam General: Generalized weakness, A&Ox 3, NAD HEENT: Normocephalic, PERRLA Neck: Supple, trachea midline, no JVD Chest: Clear to auscultation bilaterally Cardiovascular: RRR, S1&S2 GI: Soft and nontender, hypoactive bowel sounds in all quadrants Extremities: No cyanosis/clubbing/or edema BATCH UNIT TREATER: CN II-XII intact, no focal deficits Musculoskeletal: No paraspinal muscle tenderness, no muscle spasm Skin: Warm and intact Coagulation Studies Laboratory Tests Test 06/29/25 19:19 Prothrombin Time 10.9 SECONDS (9.0-12.0) INR International Normalized Ratio 1.1 INR Activated Partial Thromboplast Time 28 SECONDS (22-32) Coagulation Comments Problem\Assessment\Plan This is a 65-year-old male with a history of CAD s/p stenting of LAD and diagonal in 02/06, apical clot, on Eliquis, hypertension, diabetes mellitus, hyperlipidemia, history of umbilical hernia surgery about 20 years ago, came to the ER with a chief complaint of abdominal pain associated with nausea and vomiting. Abdominal CT showed findings suggestive of proximal small bowel ileus vs low-grade bowel obstruction without transition point. Significantly distended stomach. Moderate-sized umbilical hernia. NG tube placed Assessment & Plan SBO Hx umbilical hernia repair, about 20 years ago -06/30: IVF, NGT, NPO, supportive care, no BM or flatus today, last BM on 06/29; surgeon Dr. Ng consulted CAD s/p stenting in LAD and diagonal in 02/06 Left ventricular apical thrombus Chronic systolic heart failure HLD HTN NIDDM Diabetic neuropathy -antiplatelet/anticoagulant held in view of possible surgery, GDMT as tolerated, gabapentin History of hiatal hernia -PPI Code status: Full code DVT prophylaxis: SCD, Eliquis held Date of Service: Jun 30, 2025 Billing Provider: CRISTAL EDGAR Common Visit Codes: [id number] INP/OBS CARE(HIGH) CRISTAL EDGAR Jun 30, 2025 13:05
[2025-06-30] MEDS: normal saline 1000ml 1,000 ML IV SCH (13:14)
[2025-06-30] MEDS: hydrALAZINE 20mg/ml inj. IV SCH (14:15)
[2025-06-30 18:00] VITALS: BP 148/86; PULSE 85; RESP 17; TEMP 97.6; O2SAT 96
[2025-06-30 22:00] VITALS: BP 132/95; PULSE 74; RESP 15; TEMP 97.4; O2SAT 98
[2025-06-30] MEDS: heparin, porcine 5000 units/ml vial SQ SCH (23:07)
[2025-07-01 05:44] LABS: MEAN PLATELET VOLUME 9.6 FL (7.4-10.4); RED CELL DISTRIBUTION WIDTH 14.3 % (11.5-14.5)
[2025-07-01 05:50] LABS: CREATININE 1.14 MG/DL (0.60-1.10); TOTAL CARBON DIOXIDE 29.7 MMOL/L (24-32); eCRCL 58 ML/MIN; eGFR 64 ML/MIN
[2025-07-01 06:00] VITALS: BP 125/88; PULSE 99; RESP 16; TEMP 98.2; O2SAT 99
[2025-07-01 10:00] VITALS: BP 133/74; PULSE 76; RESP 16; TEMP 98; O2SAT 91
--- NOTE | 2025-07-01 13:28 | PROGRESS NOTE ---
Daily Progress Note Providers to CC ~ Antibiotic Timeout Antibiotic Ordered?: No Subjective No acute events overnight. Patient examined at bedside. No new complaints, not in acute distress. Patient denies chest pain, sob, palpitations, n/v/d. Reports improving abdominal pain. Vss, labs unremarkable. Had BM and passing flatus. NGT discontinued, started clear liquid diet. Objective Vital Signs Date Time Temp Pulse Resp B/P (MAP) Pulse Ox O2 Delivery O2 Flow Rate FiO2 07/01/25 09:03 94 07/01/25 06:00 98.2 16 125/88 (100) 99 Room Air 06/30/25 20:00 0.0 Result Diagram: 07/01/2544507/01/25445 Physical Exam General: Generalized weakness, A&Ox 3, NAD HEENT: Normocephalic, PERRLA Neck: Supple, trachea midline, no JVD Chest: Clear to auscultation bilaterally Cardiovascular: RRR, S1&S2 GI: Soft and nontender, bowel sounds present in all four quadrants Extremities: No cyanosis/clubbing/or edema BLOOD DONOR UNIT ASSISTANT: CN II-XII intact, no focal deficits Musculoskeletal: No paraspinal muscle tenderness, no muscle spasm Skin: Warm and intact Coagulation Studies Laboratory Tests Test 06/29/25 19:19 Prothrombin Time 10.9 SECONDS (9.0-12.0) INR International Normalized Ratio 1.1 INR Activated Partial Thromboplast Time 28 SECONDS (22-32) Coagulation Comments Problem\Assessment\Plan This is a 65-year-old male with a history of CAD s/p stenting of LAD and diagonal in 02/06, apical clot, on Eliquis, hypertension, diabetes mellitus, hyperlipidemia, history of umbilical hernia surgery about 20 years ago, came to the ER with a chief complaint of abdominal pain associated with nausea and vomiting. Abdominal CT showed findings suggestive of proximal small bowel ileus vs low-grade bowel obstruction without transition point. Significantly distended stomach. Moderate-sized umbilical hernia. NG tube placed Assessment & Plan SBO Hx umbilical hernia repair, about 20 years ago -06/30: IVF, NGT, NPO, supportive care, no BM or flatus today, last BM on 06/29; surgeon Dr. Ng consulted -07/01: Had BM and passing flatus. NGT discontinued, started clear liquid diet CAD s/p stenting in LAD and diagonal in 02/06 Left ventricular apical thrombus Chronic systolic heart failure HLD HTN NIDDM Diabetic neuropathy -antiplatelet/anticoagulant held in view of possible surgery, GDMT as tolerated, gabapentin History of hiatal hernia -PPI Code status: Full code DVT prophylaxis: Angie PEACOCKqujenn held Date of Service: Jul 01, 2025 Billing Provider: CRISTAL EDGAR Common Visit Codes: [id number] INP/OBS CARE(HIGH) CRISTAL EDGAR Jul 01, 2025 13:28
[2025-07-01] MEDS ORDERED: hydrALAZINE 20mg/ml inj. IV PRN (17:20)
[2025-07-01 18:00] VITALS: BP 131/57; PULSE 83; RESP 16; TEMP 98.5; O2SAT 98
--- NOTE | 2025-07-01 19:12 | PROGRESS NOTE ---
Progress Note Dictate Providers to CC CC: VIV FARR MD ~ Progress Note: 65-year-old gentleman admitted yesterday with small-bowel obstruction There was not a clear transition point on the CT scan Nasogastric tube was placed yesterday and today abdominal pain, distention resolved Passing gas with bowel movement Nasogastric tube removed and he is tolerating clear liquid diet On exam he has a softly distended abdomen Umbilical hernia soft No abdominal tenderness to palpation Advanced to a regular diet Safe for discharge home tomorrow if he tolerates diet He can follow up with me for his recurrent umbilical hernia if interested. Antibiotic Ordered?: No Objective Vitals Vital Signs Date Time Temp Pulse Resp B/P (MAP) Pulse Ox O2 Delivery O2 Flow Rate FiO2 07/01/25 13:19 76 07/01/25 10:00 98.0 16 133/74 (93) 91 Room Air 07/01/25 08:00 0.0 Lab Results: 07/01/25 0446 07/01/25 0446 Coagulation Studies Laboratory Tests Test 06/29/25 19:19 Prothrombin Time 10.9 SECONDS (9.0-12.0) INR International Normalized Ratio 1.1 INR Activated Partial Thromboplast Time 28 SECONDS (22-32) Coagulation Comments VIV FARR MD Jul 01, 2025 19:12
[2025-07-01] MEDS: HYDROcodone/acetaminophen 10/325mg tab PO PRN (19:55)
[2025-07-01] MEDS: diatr meglu/diatrizoate 30ml oral sol.-(3 dose) bottle PO SCH (21:00)
[2025-07-01 22:00] VITALS: BP 99/45; PULSE 80; RESP 16; TEMP 98.2; O2SAT 95
[2025-07-02 05:35] LABS: MEAN PLATELET VOLUME 9.4 FL (7.4-10.4); RED CELL DISTRIBUTION WIDTH 14.6 % (11.5-14.5)
[2025-07-02 05:58] LABS: CREATININE 0.97 MG/DL (0.60-1.10); TOTAL CARBON DIOXIDE 28.7 MMOL/L (24-32); eCRCL 68 ML/MIN; eGFR 77 ML/MIN
[2025-07-02 06:00] VITALS: BP 124/56; PULSE 69; RESP 15; TEMP 97.4; O2SAT 98
[2025-07-02] MEDS ORDERED: CARV6.253 PO (07:01)
[2025-07-02 08:00] VITALS: BP_SYST 125; PULSE 69; RESP 14; O2SAT 98
[2025-07-02] MEDS: carvedilol 6.25mg tablet PO SCH (09:03)
[2025-07-02] MEDS: aspirin 81mg, enteric-coated 1 TAB TABLET.DR PO SCH (09:06)
[2025-07-02 09:17] VITALS: RESP 16
--- NOTE | 2025-07-02 10:07 | DISCHARGE SUMMARY ---
Discharge Summary Providers to CC ~ Discharge Summary Admission Diagnosis: SBO Hospital Course DATE OF ADMISSION: 06/29/25 DATE OF DISCHARGE: 07/02/25 Discharge Diagnosis\\Comment: SBO Hx umbilical hernia repair CAD s/p stent Left ventricular apical thrombus Chronic systolic heart failure HLD HTN NIDDM Diabetic neuropathy Hiatal hernia Operations\\Procedures: None Consultants: Tyler Bell Complications: None Condition on DC: Stable New Medications: Carvedilol (Carvedilol) 6.25 Mg Tablet 1 TAB PO Q12H for 30 Days, #60 TAB 0 Refills Continued Medications: Apixaban (Eliquis) 5 Mg Tablet 1 TAB PO BID Aspirin (Aspirin EC) 81 Mg Tablet.dr 2 TAB PO DAILY Bupropion HCl (Wellbutrin Xl) 300 Mg Tab.er.24h 1 TAB PO DAILY Clopidogrel Bisulfate (Clopidogrel) 75 Mg Tablet 1 TAB PO DAILY Empagliflozin (Jardiance) 10 Mg Tablet 1 TAB PO DAILY, TAB 0 Refills Gabapentin (Gabapentin) 600 Mg Tablet 1 TAB PO BID Hydrocodone Bit/Acetaminophen (Hydrocodone-Apap 10-325 Tablet) 10mg/325mg Tablet 1 TAB PO QID PRN for pain Lisinopril (Lisinopril) 5 Mg Tablet 1 TAB PO DAILY, TAB 0 Refills Metformin Hcl (Metformin Hcl) 500 Mg Tablet 1 TAB PO DAILY Multivitamin (Multi Vitamin Daily) 1 Each Tablet 1 TAB PO DAILY, TAB 0 Refills Pantoprazole Sodium (Pantoprazole Sodium) 40 Mg Tablet.dr 1 TAB PO DAILY Rosuvastatin Calcium (Rosuvastatin Calcium) 40 Mg Tablet 1 TAB PO DAILY Spironolactone (Spironolactone) 25 Mg Tablet 0.5 TAB PO BID Terazosin HCl (Terazosin HCl) 2 Mg Capsule 1 CAP PO HS Testosterone Cypionate (TESTOSTERONE CYPIONATE 200mg/ml 10ml vial) 200 Mg/Ml Vial 1 ML IM Q2W [Vitamin D] () 1 TAB PO DAILY Discontinued Medications: Carvedilol* (Coreg*) 12.5 Mg Tablet 1 TAB PO Q12H, TAB Discharge Summary: History of Present Illness From H&P: "This is a 65-year-old male with a history of CAD s/p stenting of LAD and diagonal in 02/06, apical clot, on Eliquis, hypertension, diabetes mellitus, hyperlipidemia, history of umbilical hernia surgery about 20 years ago, came to the ER with a chief complaint of abdominal pain which started around 1:00 p.m. today. The pain is located in the periumbilical region, described it as sharp and continuous, graded 9/10, nonradiating. The pain is associated with nausea and vomiting which started about 2-3 hours after the abdominal pain, had about five episodes containing food material, denies any hematemesis. Denies any fever, diarrhea or constipation. Last bowel movement was around 2:00 p.m. today. No similar complaints in the past. Denies any recent travel history, changes in the diet. No similar complaints in other family members. He never had a colonoscopy done. Had Cologuard test in the past, nothing out of ordinary was found. Course in the ER: Abdominal CT showed ileus vs SBO with significant dilation of stomach. NG tube was placed about 800 mL of greenish fluid was suctioned. The pain improved after the NG tube was placed currently reports a pain level of 4/10. Gas Well Drilling Manager is Dr. Brennan." Hospital Course Diagnostic findings were notable for low-grade bowel obstruction and stranding within a moderate-sized umbilical hernia without contained bowel loop. Pertinent negative findings were no acidosis with normal lactic acid. Patient was started on intravenous fluids, NG tube with intermittent suction, and supportive care. Case was consulted with surgeon Dr. Ng. With the start of treatment, bowel function returned. Patient passed flatus and made bowel movement. Patient was then started on clear liquid diet which was advanced as patient tolerated well. Patient did not experience further complications throughout the entire hospital stay made a good recovery. Patient was seen and examined on the day of discharge. On day of discharge, vss and labs unremarkable. All labs, diagnostic workups, discharge plan discussed with patient in details during visit before discharge. All questions and concerns answered to the best of my professional knowledge. Patient is to be discharged to home to self and to follow-up with PCP and Dr. Ng within 2 weeks. Physical Exam General: A&Ox 3, NAD HEENT: Normocephalic, PERRLA Neck: Supple, trachea midline, no JVD Chest: Clear to auscultation bilaterally Cardiovascular: RRR, S1&S2 GI: Soft and nontender, bowel sounds present in all four quadrants Extremities: No cyanosis/clubbing/or edema FABRICATION AND ASSEMBLY SUPERVISOR: CN II-XII intact, no focal deficits Musculoskeletal: No paraspinal muscle tenderness, no muscle spasm Skin: Warm and intact *Problems/Diagnosis: (1) Small bowel obstruction Status: Acute Total Time Spent on D/C: > 30 Minutes Date of Service: Jul 02, 2025 Billing Provider: CRISTAL DEGAR Common Visit Codes: [id number] DISCH DAY >30min CRISTAL EDGAR Jul 02, 2025 10:07
== END 2025-07-02 10:38 | disposition home or self-care (01) | DRG 389 ==
LOC: ER 19:04 → ED HOLD 21:41 → ORTHO 4S 23:45
PROVIDERS: ADMIT Internal Medicine; ATTEND Nurse Practitioner Family
PROC: 0D9670Z Drainage of Stomach with Drainage Device, Via Natural or Artificial Opening (ICD-10-PCS; principal; 2025-06-29)
PROC: BW211ZZ Computerized Tomography (CT Scan) of Abdomen and Pelvis using Low Osmolar Contrast (ICD-10-PCS; 2025-06-29)
DX: K56.609 Unspecified intestinal obstruction, unspecified as to partial versus complete obstruction (principal); I50.22 Chronic systolic (congestive) heart failure; N40.0 Benign prostatic hyperplasia without lower urinary tract symptoms; E11.40 Type 2 diabetes mellitus with diabetic neuropathy, unspecified; K44.9 Diaphragmatic hernia without obstruction or gangrene; E78.5 Hyperlipidemia, unspecified; I11.0 Hypertensive heart disease with heart failure; I25.10 Atherosclerotic heart disease of native coronary artery without angina pectoris; Z79.01 Long term (current) use of anticoagulants; Z79.82 Long term (current) use of aspirin; Z79.899 Other long term (current) drug therapy; Z79.84 Long term (current) use of oral hypoglycemic drugs
CPT/HCPCS: 36415; 74176; 80048; 80053; 80061; 81001; 83036; 83605; 83690; 83735; 83880; 85025; 85610; 85730; 87081; 96374; 96375; 96376; 97116; 97161; 99285; G0378; J0360; J1644; J2270; J2405; J2470; J7030